=== PATIENT | female | born 1985 | race Caucasian/White ===

== ENCOUNTER 2017-02-22 11:14 | Emergency (ER) | payer BC ==
[2017-02-22 11:25] VITALS: BP 134/83
--- NOTE | 2017-02-22 11:57 | CR ---
Left clavicle: Two views of the left clavicle were obtained. Comparison: No previous study. No fracture or other bony abnormality is seen. Impression: 1. No abnormality is seen on two-view left clavicle exam. Diagnostic code #1
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
== END 2017-02-22 12:25 | disposition home or self-care (01) ==
LOC: JD.ED 11:14
DX: S43.402A Unspecified sprain of left shoulder joint, initial encounter (principal); S46.912A Strain of unspecified muscle, fascia and tendon at shoulder and upper arm level, left arm, initial encounter; S40.212A Abrasion of left shoulder, initial encounter; Z88.2 Allergy status to sulfonamides; V19.88XA Pedal cyclist (driver) (passenger) injured in other specified transport accidents, initial encounter; Y92.488 Other paved roadways as the place of occurrence of the external cause
CPT/HCPCS: 73000-26-LT; 73000-LT; 99282; 99284